=== PATIENT | male | born 1980 | race Caucasian/White ===

== ENCOUNTER → 2016-06-27 | Outpatient (REF) | LOC: WSOH 10:19 | DX: Z02.89 Encounter for other administrative examinations (principal) ==

== ENCOUNTER 2016-07-03 09:58 | Outpatient (RCR) | payer OTHER | END 2016-10-01 | LOC: WSOH | DX: S39.012A Strain of muscle, fascia and tendon of lower back, initial encounter (principal); X50.0XXA Overexertion from strenuous movement or load, initial encounter; Y99.0 Civilian activity done for income or pay ==

== ENCOUNTER → 2016-07-03 | Outpatient (REF) | LOC: WSOH 14:20 | DX: Z02.89 Encounter for other administrative examinations (principal) ==

== ENCOUNTER → 2016-08-24 | Outpatient (REF) | LOC: WSOH 11:11 | DX: Z01.89 Encounter for other specified special examinations (principal) ==